=== PATIENT | male | born 2000 | race Hispanic/Latino ===

== ENCOUNTER 2024-01-24 22:25 | Emergency (ER) | payer SELFPAY ==
[2024-01-24] MEDS ORDERED: EPINEPHrine 1 MG/10 ML Abboject SYRINGE ONE (22:34)
== END 2024-01-24 22:36 | disposition expired ==
LOC: EDBD 22:25 → ERS 22:25 → EEVIPCON 22:25 → ERS 22:36
DX: S21.302A Unspecified open wound of left front wall of thorax with penetration into thoracic cavity, initial encounter (principal); S41.002A Unspecified open wound of left shoulder, initial encounter; I46.9 Cardiac arrest, cause unspecified; Y35.0 Legal intervention involving firearm discharge
CPT/HCPCS: 36430; 71045; 86900; 86901; 92950; J0171; P9016